=== PATIENT | male | born 2000 ===

== ENCOUNTER 2023-11-22 09:51 | Outpatient (AMB) | payer BC, SELFPAY ==
--- NOTE | 2023-11-22 09:58 | MHC.PC.OV ---
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: No Accompanied by: Self / Same As Patient Allergies penicillin V Allergy (Unknown, Verified 11/22/23 10:04) Rash Medication List - Last Reconciled 11/22/23 by Kelvin Serrano MD No Known Home Meds Tobacco use date assessed: 11/22/23 Dental Screening Dental Screen Date: 11/22/23 Did you have a dental visit in the last 12 months?: Yes Did you have a dental problem in the last 6 months where you did not have access to dental care?: No Was dental information given to patient?: Patient has dentist HPI 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 SurgHx: R Ing. Hernia repair 2009 FHx: Mom: Tachycardia/Palpitations, Sister: Palpitations. GF: CAD/[place], HTN, HLD. SocHx: Nonsmoker. EtOH 1 beer per week. No Drugs HPI Comments History of Present Illness Details Documentation assistance for Kelvin Serrano MD, was provided by Brad Melton,? Ventilation Worker on 11/22/2023 at 10:48 AM EST. I, Dr. Serrano, have read, observed, and verified documentation. 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 1. Little interest or pleasure in doing things: not at all 2. Feeling down, depressed, or hopeless: not at all 3. Trouble falling or staying asleep, or sleeping too much: several days 4. Feeling tired or having little energy: several days 5. Poor appetite or overeating: not at all 6. Feeling bad about yourself - or that you are a failure or have let yourself or your family down: not at all 7. Trouble concentrating on things, such as reading the newspaper or watching television: not at all 8. Moving or speaking so slowly that other people could have noticed. Or the opposite - being so fidgety or restless that you have been moving around a lot more than usual: not at all 9. Thoughts that you would be better off or of hurting yourself in some way: not at all Total score: 2 Depression Screening Interpretation: Negative Depression Screening Done: Yes [id number] - PHQ-9 Billing: Yes Source: Developed by Drs. Papa Abraham, Grace Sanchez, Jersey Pederson and colleagues, with an educational marti from [employer]. Thrive Questionnaire Date Thrive assessed: 11/22/23 I am a: Patient What is your living situation today?: I have a steady place to live Within the past 12 months, did the food you bought not last and you didn't have the money to get more?: Never true Within the past 12 months, did you worry whether your food would run out before you got money to buy more?: Never true Do you have trouble paying for medicines?: No Do you have trouble getting transportation to medical appointments?: No Do you have trouble paying your heating and electricity bill?: No Do you have trouble taking care of your child, family member or friend?: No Do you have trouble with day-to-day activities such as bathing, preparing meals, shopping, managing finances, etc.?: No Are you currently unemployed and looking for a job?: No Are you interested in more education?: No Please select the resources that you would like help with: None Currently or been in a relationship where the following occur: No concerns reported THRIVE Score: 0 RADHA-7 AMB Questionnaire RADHA-7 Date RADHA - 7 assessed: 11/22/23 Feeling nervous, anxious, or on edge: 0 = Not at all Not being able to stop or control worryin = Not at all Worrying too much about different things: 0 = Not at all Trouble relaxin = More than half the days Being so restless that it is hard to sit still: 0 = Not at all Becoming easily annoyed or irritable: 0 = Not at all Feeling afraid as if something awful might happen: 0 = Not at all Total RADHA-7 score (0-4 normal; 5-9 mild; 10-14 moderate; 15-21 severe): 2 Source: Developed by Drs. Papa Abraham, Grace Sanchez, Jersey Pederson and colleagues, with an educational marti from [employer]. RADHA-7 Assessment Billing RADHA-7 Assessment Tool: RADHA-7 Assessment 67639 Review of Systems Const Denies chills, Denies fatigue, Denies fever(s), Denies headache(s) and Denies weakness Eyes Denies change in vision ENT Denies dizziness, Denies headache(s), Denies hearing loss, Denies nasal congestion, Denies sinus pain, Denies sinus pressure and Denies sore throat Card Denies chest pain, Denies lightheadedness, Denies dyspnea and Denies other (palpitations) Resp Denies cough, Denies dyspnea and Denies wheezing GI Denies abdominal pain, Denies melena, Denies hematochezia, Denies change in bowel habits, Denies dyspepsia and Denies nausea Denies hematuria and Denies dysuria Musc Denies abnormal gait, Denies myalgias, Denies arthralgias, Denies numbness and Denies tingling Skin/Breast Denies rash, Denies unusual bruising and Denies wounds Neuro Denies abnormal gait, Denies dizziness, Denies headache(s), Denies memory loss, Denies numbness, Denies Sensory deficit (Neuro), Denies tingling and Denies weakness Psych Denies anxiety, Denies depression and Denies memory loss Endo Denies cold intolerance, Denies fatigue, Denies heat intolerance, Denies polydipsia and Denies polyuria Tunde/Lymph Denies easy bleeding and Denies easy bruising Aller/Immun Denies wheezing Physical exam (Primary Care) Vital Signs: Last Vital Signs Temp 97.7 F 11/22/23 09:59 Pulse 76 11/22/23 09:59 Resp 14 11/22/23 09:59 BP 116/70 11/22/23 09:59 Pulse Ox 95 11/22/23 09:59 Oxygen Delivery Method Room Air 11/22/23 09:59 BMI result Body Mass Index 27.8 Tobacco/Smoking Status: Tobacco use Status Tobacco use date assessed 11/22/23 11/22/23 10:16 Patient Tobacco Use Status Never used Tobacco 11/22/23 10:16 e-Cigarette/Vaping Use Never Used 11/22/23 10:16 PHQ-9: PHQ-9 Score PHQ-9: Total score 2 11/22/23 10:42 Depression Screening Interpretation: Negative Thrive Assessment: Date of Thrive Assessment Date Thrive assessed 11/22/23 11/22/23 10:16 Currently or been in a relationship where the following occur: No concerns reported Const Other: Muscular General: no acute distress, well developed, alert and awake Nutritional Appearance: well nourished Orientation/consciousness: patient oriented x3 HENMT Head: Yes normocephalic and Yes atraumatic Ears: hearing grossly normal bilaterally and TM's normal bilaterally General nose exam: Normal external nose present and Normal nares present Mouth: Normal oral and palatal mucosa present and moist mucous membranes Teeth and gingiva: dentition normal Throat: Yes posterior oropharynx normal Eyes General: appearance normal, both eyes and all related structures Pupils: Equal, round and reactive pupils present and Pupil accommodation reflex normal EOM: EOMs intact bilaterally Neck Neck: Yes normal visual inspection, Yes no lymphadenopathy and Yes trachea midline Thyroid: Thyroid normal Carotids: no bruits Lymphatic: no lymphadenopathy noted Chest Chest palpation & inspection: normal inspection of the chest Resp Effort & Inspection: normal respiratory effort Auscultation: clear to auscultation bilaterally Cardio Rate: regular rate Rhythm: regular rhythm Heart sounds: S1 normal heart sound present, S2 normal heart sound present, no gallops, no murmurs and no rubs Bruits: no abdominal aortic bruits and no carotid bruits GI Palpation (GI): No Abdominal aortic bruit present, Soft to palpation, nontender, No hepatosplenomegaly present and No Rebound tenderness present Auscultation: normal bowel sounds General: Yes no CVA tenderness Back/Spine/Pelvis Back: no CVA tenderness Cervical Spine: cervical ROM normal and No Cervical spine tenderness Thoracic/Lumbar Spine: thoraco-lumbar ROM normal, No pain with thoraco-lumbar ROM, No thoracic spinal tenderness and No lumbar spinal tenderness Skin Lesions: no lesions Rashes: no rashes Trauma: no lacerations or abrasions Wounds: no wounds Nails: normal Neuro General: patient oriented x3 Cranial nerves: Yes Equal, round and reactive pupils present Cognition (Neuro): normal cognition Gait exam (Neuro): Normal gait present Motor exam (neuro): 5/5 motor strength present throughout Sensory Exam: No Sensory deficit (Neuro) Deep tendon reflexes (DTR's): Right patellar reflex intensity grade: 2+ and Left patellar reflex intensity grade: 2+ Extrem General: Yes normal to inspection and No edema Psych Appearance: grossly normal Affect: normal affect Attitude: cooperative Thought process: Normal thought process present Assessment and Plan Assessment & Plan (1) Adult general medical exam: Code(s): Z00.00 - Encounter for general adult medical examination without abnormal findings Plan: 23-year-old?male?presents?as?new?patient?for?complete?physical?exam Exam?all?within?normal?limits. Muscular?body?type; BMI?27.8?but?patient?is?not?overweight. Encouraged?ongoing?healthy?diet?with?active?lifestyle?and?plenty?of?exercise Orders: Orders TSH reflex Free T4 Today Z00.00 - Encounter for general adult medical examination without abnormal findings Comprehensive [place]. Panel Fast Today Z00.00 - Encounter for general adult medical examination without abnormal findings Lipid Panel Today Z00.00 - Encounter for general adult medical examination without abnormal findings Microalbumin, Random (w Creat) Today I10 - Essential (primary) hypertension UA and rflx microscopic Today Z00.00 - Encounter for general adult medical examination without abnormal findings Coding Level of Care Code New Pt Level 3 (21801) New Pt Prev Care 18-39yr(41294 Diagnoses Adult general medical exam Z00.00 Additional Codes RADHA-7 Assessment Billing - RADHA-7 Assessment Tool: RADHA-7 Assessment 05099 ([id number])
[2023-11-22 09:59] VITALS: BP 116/70; PULSE 76; RESP 14; TEMP 36.5; O2SAT 95; BMI 27.8
== END 2023-11-22 10:53 | disposition home or self-care (01) ==
PROVIDERS: PCP Family Medicine; Visit Provider Family Medicine
DX: Z00.00 Encounter for general adult medical examination without abnormal findings (principal)
CPT/HCPCS: 99385

== ENCOUNTER 2023-11-22 10:56 | Outpatient (REF) | payer BC, SELFPAY ==
[2023-11-22 14:45] LABS: Appearance Urine Clear; Color Urine Yellow; Glucose Urine UA Negative (Negative); Leukocyte Esterase Urine Negative (Negative); Nitrite Urine Negative (Negative); PH 6.5 (5.0-9.0); Specific Gravity - Urine 1.015 (1.005-1.025); Urine Blood Negative (Negative); Urine Ketones Negative (Negative); Urine Protein Negative (Neg-Trace)
[2023-11-22 15:35] LABS: Creatinine Urine 136.14 mg/dL; Microalbum/Creatinine Ratio Ur 8.8 ug/mg cr (<30)
[2023-11-22 15:37] LABS: Alanine Aminotransferase 34 U/L (0-40); Albumin Level 4.6 g/dL (3.5-5.0); Alkaline Phosphatase 52 U/L (39-117); Anion Gap 11 (12-20); Aspartate Amino Transferase 43 U/L (5-37); Bilirubin Total 0.9 mg/dL (0.0-1.0); Blood Urea Nitrogen 19 mg/dL (9-16); Calcium 9.8 mg/dL (8.4-10.2); Carbon Dioxide 28 mmol/L (22-29); Chloride 105 mmol/L (96-108); Cholesterol 201 mg/dL (<200); Estimated Glomerular Filt Rate > 60; Glucose Fasting 92 mg/dL (60-99); HDL Cholesterol 54 mg/dL (>40); LDL Cholesterol Calculated 137 mg/dL (<100); Potassium 4.3 mmol/L (3.3-5.1); Sodium 140 mmol/L (135-145); Total Protein 7.8 g/dL (6.5-8.0); Triglycerides 52 mg/dL (<150)
[2023-11-22 15:55] LABS: TSH reflex Free T4 0.96 uIU/mL (0.32-4.0)
== END 2023-11-22 10:57 | disposition home or self-care (01) ==
LOC: HO.WFDLDS 10:56
PROVIDERS: Visit Provider Family Medicine
DX: Z00.00 Encounter for general adult medical examination without abnormal findings (principal); I10 Essential (primary) hypertension
CPT/HCPCS: 36415; 80053; 80061; 81003; 82043; 82570; 84443

== ENCOUNTER 2023-12-26 16:45 | Outpatient (AMB) | payer BC, SELFPAY ==
--- NOTE | 2023-12-26 16:42 | MHC.PC.OV ---
Intake Visit Reasons: f/u CPE-labs via telemedicine Intake Note: follow up on labs Allergies penicillin V Allergy (Unknown, Verified 12/26/23 16:42) Rash Tobacco use date assessed: 11/22/23 Dental Screening Dental Screen Date: 11/22/23 HPI f/u CPE-labs via telemedicine HPI Details 23 y/o male presents to f/u CPE-labs via telemedicine. Labs drawn 11/22/23. Reviewed labs with pt. Elevated AST of 43. Triglycerides 52. TC 201. LDL 137. HDL 54. TSH level 0.96. 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 Papa Abraham, Grace Sanchez, [place] Pederson and colleagues, with an educational marti from [employer]. Review of Systems Const Denies chills, Denies fatigue, Denies fever(s), Denies headache(s) and Denies weakness ENT Denies dizziness and Denies headache(s) Card Denies dyspnea Resp Denies cough, Denies dyspnea, Denies wheezing and Denies other (shortness of breath) Musc Denies numbness and Denies tingling Neuro Denies dizziness, Denies headache(s), Denies numbness, Denies tingling and Denies weakness Psych Denies anxiety and Denies depression Endo Denies fatigue Aller/Immun Denies wheezing Physical exam (Primary Care) Tobacco/Smoking Status: Tobacco use Status Tobacco use date assessed 11/22/23 12/26/23 16:44 Patient Tobacco Use Status Never used Tobacco 12/26/23 16:44 e-Cigarette/Vaping Use Never Used 12/26/23 16:44 Thrive Assessment: Date of Thrive Assessment Date Thrive assessed 11/22/23 12/26/23 16:44 Telehealth Telehealth Telehealth Platform: Telephone Location of provider rendering services: practice address Location of patient: address on file Patient Identification confirmed using: Name, : Yes Telehealth method: voice only Patient verbally consented to treatment: Yes Patient verbally consented to billing insurance company: Yes Patient informed of any privacy concerns related to visit: Yes Minutes spent on Phone/Video with Pt.: 5 Assessment and Plan Assessment & Plan (1) Elevated AST (SGOT): Code(s): R74.01 - Elevation of levels of liver transaminase levels Plan: Mild?AST?elevation. Advised?improved?hydration,?mild?weight?loss?and?avoid?alcohol/Tylenol Will?recheck?with?next?blood?draw If?AST?is?the?same?or?higher,?will?check?an?ultrasound (2) Elevated LDL cholesterol level: Code(s): E78.00 - Pure hypercholesterolemia, unspecified Plan: Encouraged?diet?lower?in?saturated?fats?and?cholesterol,?mild?weight?loss Recheck?lipids?in?about?3?months Orders: Orders Lipid Panel Today E78.00 - Pure hypercholesterolemia, unspecified, Z00.00 - Encounter for general adult medical examination without abnormal findings Comprehensive [place]. Panel Fast Today R74.01 - Elevation of levels of liver transaminase levels, Z00.00 - Encounter for general adult medical examination without abnormal findings Coding Level of Care Code Tele Est Pt Level 2 (67515) Diagnoses Elevated AST (SGOT) R74.01 Elevated LDL cholesterol level E78.00
== END 2023-12-26 17:15 | disposition home or self-care (01) ==
LOC: HO.HMGFM 16:45
PROVIDERS: PCP Family Medicine; Visit Provider Family Medicine
DX: R74.01 Elevation of levels of liver transaminase levels (principal); E78.00 Pure hypercholesterolemia, unspecified
CPT/HCPCS: 99441

== ENCOUNTER 2024-08-28 10:34 | Outpatient (AMB) | payer BC, SELFPAY ==
--- NOTE | 2024-08-28 10:37 | A.OFFPC_ITS ---
Vital Signs 08/28/24 10:44 Height 5 ft 9 in Weight 189 lb BMI 27.9 BP 124/58 L Blood Pressure Location Rt brachial Position Sitting Respiration 16 Pulse 70 Pulse Source Pulse Oximeter Temp 97.4 F Temp Source Oral Pulse Oximetry (%) 97 Oxygen Delivery Method Room Air Intake Visit Reasons: dc fu possible mri referral Intake Note: patient here for C follow and possibly a referral he believes he dislocated a rib Rn Birthing Required: No Allergies penicillin V Allergy (Unknown, Verified 08/28/24 10:42) Rash Medication List - Last Reconciled 08/28/24 by Kelvin Serrano MD diclofenac potassium 50 mg PO BID PRN 30 days Tobacco use date assessed: 08/28/24 Dental Screening Dental Screen Date: 08/28/24 Did you have a dental visit in the last 12 months?: Yes Did you have a dental problem in the last 6 months where you did not have access to dental care?: No Was dental information given to patient?: Patient has dentist HPI dc fu possible mri referral HPI Details 24 y/o male presents to / hospital dis charge visit for rib pain. 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 Three weeks ago he felt a popping sensation at his chest, and last Sunday-Sunday he felt he could barely move. He notes he had been discharged with baclofen and diclofenac. Has slowly improved but still very painful and still?has?difficulty?moving,?twisting,?bending?sitting?up supine?position. 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 1. Little interest or pleasure in doing things: not at all 2. Feeling down, depressed, or hopeless: not at all 3. Trouble falling or staying asleep, or sleeping too much: not at all 4. Feeling tired or having little energy: not at all 5. Poor appetite or overeating: not at all 6. Feeling bad about yourself - or that you are a failure or have let yourself or your family down: not at all 7. Trouble concentrating on things, such as reading the newspaper or watching television: not at all 8. Moving or speaking so slowly that other people could have noticed. Or the opposite - being so fidgety or restless that you have been moving around a lot more than usual: not at all 9. Thoughts that you would be better off or of hurting yourself in some w ay: not at all Total score: 0 Source: Developed by Drs. Papa Abraham, Grace Sanchez, Jersey Pederson and colleagues, with an educational marti from [employer]. Thrive Questionnaire Date Thrive assessed: 11/22/23 I am a: Patient What is your living situation today?: I have a steady place to live Within the past 12 months, did the food you bought not last and you didn't have the money to get more?: I choose not to answer this question Within the past 12 months, did you worry whether your food would run out before you got money to buy more?: I choose not to answer this question Do you have trouble paying for medicines?: I choose not to answer this question Do you have trouble getting transportation to medical appointments?: I choose not to answer this question Do you have trouble paying your heating and electricity bill?: I choose not to answer this question Do you have trouble taking care of your child, family member or friend?: I choose not to answer this question Do you have trouble with day-to-day activities such as bathing, preparing meals, shopping, managing finances, etc.?: I choose not to answer this question Are you currently unemployed and looking for a job?: I choose not to answer this question Are you interested in more education?: I choose not to answer this question Please select the resources that you would like help with: None Currently or been in a relationship where the following occur: I choose not to answer THRIVE Score: 0 AUDIT C Alcohol Use Questionnaire (AUDIT-C) 1. How often do you have a drink containing alcohol?: Never Total Score: 0 RADHA-7 AMB Questionnaire RADHA-7 Date RADHA - 7 assessed: 11/22/23 Feeling nervous, anxious, or on edge: 0 = Not at all Not being able to stop or control worryin = Not at all Worrying too much about different things: 0 = Not at all Trouble relaxin = Not at all Being so restless that it is hard to sit still: 0 = Not at all Becoming easily annoyed or irritable: 0 = Not at all Feeling afraid as if something awful might happen: 0 = Not at all Total RADHA-7 score (0-4 normal; 5-9 mild; 10-14 moderate; 15-21 severe): 0 Source: Developed by Drs. Papa Abraham, Grace Sanchez, Jersey Pederson and colleagues, with an educational marti from [employer]. Review of Systems Const Denies chills, Denies fatigue, Denies fever(s), Denies headache(s) and Denies weakness ENT Denies dizziness and Denies headache(s) Card Denies dyspnea Resp Denies cough, Denies dyspnea, Denies wheezing and Denies other (shortness of breath) Musc Denies numbness and Denies tingling Neuro Denies dizziness, Denies headache(s), Denies numbness, Denies tingling and Denies weakness Psych Denies anxiety and Denies depression Endo Denies fatigue Aller/Immun Denies wheezing Physical exam (Primary Care) Vital Signs: Last Vital Signs Temp 97.4 F 08/28/24 10:44 Pulse 70 08/28/24 10:44 Resp 16 08/28/24 10:44 BP 124/58 L 08/28/24 10:44 Pulse Ox 97 08/28/24 10:44 Oxygen Delivery Method Room Air 08/28/24 10:44 BMI result Body Mass Index 27.9 Tobacco/Smoking Status: Tobacco use Status Tobacco use date assessed 08/28/24 08/28/24 10:45 Patient Tobacco Use Status Never used Tobacco 08/28/24 10:41 e-Cigarette/Vaping Use Never Used 08/28/24 10:41 PHQ-9: PHQ-9 Score PHQ-9: Total score 0 08/28/24 11:24 Thrive Assessment: Date of Thrive Assessment Date Thrive assessed 11/22/23 08/28/24 10:41 Currently or been in a relationship where the following occur: I choose not to answer Const General: well developed; No acute distress Nutritional Appearance: well nourished Orientation/consciousness: patient oriented x3 HENMT Head: Yes normocephalic and Yes atraumatic Eyes General: appearance normal, both eyes and all related structures Pupils: Equal, round and reactive pupils present EOM: EOMs intact bilaterally Chest Other: R costal margin tenderness, rectus abdominus tenderness Resp Effort & Inspection: normal respiratory effort Neuro General: patient oriented x3 and gait normal Cranial nerves: Yes Equal, round and reactive pupils present Psych Affect: normal affect Coding Level of Care Code Est Pt Level 3 (80614) Diagnoses Rib pain R07.81 Assessment & Plan Assessment & Plan (1) Rib pain: Code(s): R07.81 - Pleurodynia Category: Medical Plan: Right?costal?margin?rib?pain?in attachment?point?of?rectus?abdominis?muscle?tenderness. ?Mild?swelling?or?lump?but?no?discrete mass. Possible?hematoma mild?muscle?strain.??Less?likely?complete?avulsion?rectus?abdominis?muscle. Possible?costochondritis Continue?diclofenac,?ice/heat?and?can?finish?up?baclofen?at?bedtime Will?check?ultrasound?to?rule?out?hematoma?muscle?avulsion/tear. Orders: Orders US chest Today R07.81 - Pleurodynia Medications: New diclofenac potassium 50 mg PO BID 30 days PRN 60 tabs 0RF pain
[2024-08-28 10:44] VITALS: BP 124/58; PULSE 70; RESP 16; TEMP 36.3; O2SAT 97; BMI 27.9
--- OUTSIDE RECORDS SUMMARY | 2024-08-28 12:44 | XMS_ITS | Clinical Summary ---
Demographics Address [address] [place] [address] Mobile Phone Home Phone Preferred Language en Marital Status Single Presybeterian Affiliation Unknown Race White Ethnic Group Not or Lati no Author Organization [facility] Address [address] [place] [address] Phone Care Team Providers Care Health Informatics Advisor Name Role Phone Judi Samuels MD Primary Care Provider [phone] Allergies Active Allergy Reactions Criticality Noted Date Comments Penicillins Rash 08/22/2024 Medications diclofenac (VOLTAREN) 25 mg EC tablet Take 1 tablet (25 mg total) by mouth 2 (two) times a day for 7 days. Do not crush, chew, or split. 14 each 08/22/2024 5 Active baclofen (LIORESAL) 10 mg tablet Take 1 tablet (10 mg total) by mouth 3 (three) times a day for 10 days. 30 tablet 08/22/2024 5 Active Encounters Date Type Department Care Team Description 08/22/2024 10:10 AM EDT - 08/22/2024 11:15 AM EDT Emergency [facility] Emergency [address] [place] [address] Rib injury (Primary Dx) Discharge Disposition: Home or Self Care from Last 3 Months Surgical History Surgery Date Site/Laterality Comments HERNIA REPAIR PROCEDURE: HISTORICAL HERNIA REPAIR/ING Social History Tobacco Use Types Packs/Day Years Used Date Smoking Tobacco: Never Smokeless Tobacco: Never Sex and Gender Information Value Date Recorded Sex Assigned at Not on file Legal Sex Male 9:53 PM EST Gender Identity Male 08/22/2024 10:37 AM EDT Sexual Orientation Not on file Travel History Travel Start Travel End [place] 08/01/2024 08/08/2024 Obstetrics History Last Filed Vital Signs Vital Sign Reading Time Taken Comments Blood Pressure 143/81 08/22/2024 9:56 AM EDT Pulse 86 08/22/2024 9:56 AM EDT Temperature 36.3 ??C (97.3 ??F) 08/22/2024 9:56 AM ED T Respiratory Rate 16 08/22/2024 9:56 AM EDT Oxygen Saturation 98% 08/22/2024 9:56 AM EDT Inhaled Oxygen Concentration - - Weight 83.9 kg (185 lb) 08/22/2024 9:56 AM EDT Height 172.7 cm (5' 8 ) 08/22/2024 9:56 AM EDT Body Mass Index 28.13 08/22/2024 9:56 AM EDT Plan of Treatment Health Maintenance Due Date Last Done Comments HPV Vaccines (1 - Male 3-dos e series) 2014 Hepatitis B Vaccines (1 of 3 - 19+ 3-dose series) 2018 COVID-19 Vaccine (1 - 2023-2 5 season) 2024 Depression Screening 08/22/2024 HIV Screening 08/22/2024 Hepatitis C Screening 08/22/2024 Social Influencers of Health Screening 08/22/2024 Influenza Vaccine (Season Ended) 2025 DTaP,Tdap,and Td Vaccines (2 - Td or Tdap) 08/29/2030 08/29/2020 Meningococcal B Vaccine Completed 01/23/20 18, 01/19/2017 HIB Vaccines Aged Out No longer eligi ble based on patient's age to complete this topic Hepatitis A Vaccines Aged Out No long er eligible based on patient's age to complete this topic IPV Vaccines Aged Out No longer eligi ble based on patient's age to complete this topic MMR Vaccines Aged Out No longer eligi ble based on patient's age to complete this topic Meningococcal ACWY Vaccine Aged Out N o longer eligible based on patient's age to complete this topic Pneumococcal Vaccine: Pediatrics (0 to 5 Years) and At-Risk Patients (6 to 64 Years) Aged Out No longer eligible b ased on patient's age to complete this topic RSV Immunization Patients Under 20 months Aged Out No longer eligible b ased on patient's age to complete this topic Varicella Vaccines Aged Out No longer eligible based on patient's age to complete this topic Procedures Procedure Name Priority Date/Time Associated Diagnosis Comments XR RIBS W CHEST 3+ VIEWS RIGHT STAT 08/22/2024 10:20 AM EDT from Last 3 Months Results * XR Ribs w Chest 3+ Views Right (08/22/2024 10:20 AM EDT) Anatomical Region Laterality Modality Body Right Radiographic Shahida ging 08/22/2024 10:2 8 AM EDT Impressions 08/22/2024 10:29 AM EDT Normal exam. -------- FINAL REPORT -------- Dictated By: Louie Nino Dictated Date: 08/22/2024 10:28 ET Assigned Physician: Louie Nino Reviewed and Electronically Signed By: Louie Nino Signed Date: 08/22/2024 10:29 ET Workstation ID: [id number] Transcribed By: Self Edit Transcribed Date: 08/22/2024 10:28 ET Narrative 08/22/2024 10:29 AM EDT PROCEDURE: Chest radiograph and dedicated views of the right ribs. HISTORY: pain. COMPARISON: None. FINDINGS: Lungs, pleural spaces, pulmonary vasculature, and cardiomediastinal contours are normal. Dedicated right rib radiographs demonstrate no visible fracture or bony lesion. Procedure Note Louie Nino MD - 08/22/2024 PROCEDURE: Chest radiograph and dedicated views of the right ribs. HISTORY: pain. COMPARISON: None. FINDINGS: Lungs, pleural spaces, pulmonary vasculature, and cardiomediastinalcontours are normal. Dedicated right rib radiographs demonstrate no visible fracture or bonylesion. IMPRESSION: Normal exam. -------- FINAL REPORT -------- Dictated By: Louie Nino Dictated Date: 08/22/2024 10:28 ET Assigned Physician: Louie Nino Reviewed and Electronically Signed By: Louie Nino Signed Date: 08/22/2024 10:29 ET Workstation ID: [id number] Transcribed By: Self Edit Transcribed Date: 08/22/2024 10:28 ET Luz [facility] IMG XR PROCEDURES Final Re sult from Last 3 Months Insurance [address] [place], [place] [employer] Member Subscriber Plan / Payer (Ef fective 2018-Present) Name:Luis Miguel Ritchie Relation to Subscriber:Child Name:Elba Ritchie Date of :1966 (Home) Address[address] [place], [place] Payer ID:[id number] (NAIC) Type:Not on file Address: [address] [place] [address] Care Teams Health Informatics Advisor Relationship Specialty Start Date End Date Judi Samuels MD [address] [place] [address] [place] [address] PCP - General Pediatrics 04/26/20
== END 2024-08-28 15:25 | disposition home or self-care (01) ==
LOC: HO.HMCFM 10:35
PROVIDERS: PCP Family Medicine; Visit Provider Family Medicine
DX: R07.81 Pleurodynia (principal)

== ENCOUNTER → 2024-08-28 10:34 | Outpatient (BNVA) | payer BC, SELFPAY | PROVIDERS: PCP Family Medicine; Visit Provider Family Medicine | DX: Z13.89 Encounter for screening for other disorder (principal) ==

== ENCOUNTER 2024-09-18 12:58 | Outpatient (REF) | payer BC, SELFPAY ==
--- NOTE | ~2024-09-18 | US_ITS ---
EXAMINATION: US CHEST HISTORY: R07.81 - Pleurodynia COMPARISON: There are no prior studies for comparison. FINDINGS: Sonographic examination of the right lower anterior chest wall was performed. No fluid collection or muscle abnormality is seen. Images appear similar to the contralateral side. US/US chest IMPRESSION: No sonographic abnormality is seen in the region of the patient's discomfort in the right lower anterior chest wall. Electronically signed by: Papa Causey MD 09/18/2024 03:21 PM EDT
--- OUTSIDE RECORDS SUMMARY | 2024-09-18 14:04 | XMS_ITS | Clinical Summary ---
Demographics Address [address] [place] [address] Mobile Phone Home Phone Preferred Language en Marital Status Single Orthodox Affiliation Unknown Race White Ethnic Group Not or Lati no Author Organization [facility] Address [address] [place] [address] Phone Care Team Providers Care Arranging Funeral Director Name Role Phone Judi Samuels MD Primary Care Provider Allergies Active Allergy Reactions Criticality Noted Date Comments Penicillins Rash 08/22/2024 Medications baclofen (LIORESAL) 10 mg tablet Take 1 tablet (10 mg total) by mouth 3 (three) times a day for 10 days. 30 tablet 08/22/2024 Active diclofenac (VOLTAREN) 25 mg EC tablet Take 1 tablet (25 mg total) by mouth 2 (two) times a day for 7 days. Do not crush, chew, or split. 14 each 08/22/2024 Encounters Date Type Department Care Team Description 08/22/2024 10:10 AM EDT - 08/22/2024 11:15 AM EDT Emergency [facility] Emergency [address] [place] [address] Rib injury (Primary Dx) Discharge [...] AM EDT Sexual Orientation Not on file Obstetrics History Last Filed Vital Signs Vital [...] Signed Date: 08/22/2024 10:29 ET Workstation ID: [id number] Transcribed By: Self Edit Transcribed Date: 08/22/2024 [...] Signed Date: 08/22/2024 10:29 ET Workstation ID: [id number] Transcribed By: Self Edit Transcribed Date: 08/22/2024 10:28 ET us Luz [facility] IMG XR PROCEDURES Final Re sult from Last 3 Months Insurance * Guarantor: Luis Miguel Ritchie Account Type Relation to Patient Date of Phone Billing Address Personal/Family Self 2000 [address] [place] [address] [employer] Member Subscriber Plan / Payer (Ef fective 2018-Present) Name:Moisespriya Luis Miguel Relation to Subscriber:Child Name:Elba Ritchie Date of :1967 (Home) Address: [address] [place] [address] Payer ID:[id number] (NAIC) Type:Not on file Address: [address] [place] [address] Care Teams Arranging Funeral Director Relationship Specialty Start Date End Date Judi Samuels MD [address] [place] [address] [place] [address] PCP - General Pediatrics 04/26/20
== END 2024-09-18 12:59 | disposition home or self-care (01) ==
LOC: HO.HMGCX 12:58
PROVIDERS: PCP Family Medicine; Visit Provider Family Medicine
DX: R07.81 Pleurodynia (principal)
CPT/HCPCS: 76604

== ENCOUNTER → 2024-09-18 13:01 | Outpatient (BNV) | payer BC, SELFPAY | PROVIDERS: PCP Family Medicine; Visit Provider Radiology Diagnostic Radiology | DX: R07.81 Pleurodynia (principal) | CPT/HCPCS: 76604 ==